=== PATIENT | male | born 1950 | race Caucasian/White ===

== ENCOUNTER → 2016-06-20 | Outpatient (REF) | payer MEDICARE ==
[~2016-06-20] MED LIST: /WARF25TA PO; LIPITOR PO; LISIPOW PO; MOTRIN PO; OXYC1CON PO; PERCOCET PO; TYLE325T5 PO; VICODIN PO
[2016-06-20 12:59] LABS: ALBUMIN 3.8 GM/DL (3.2-5.2); ALBUMIN/GLOBULIN RATIO 1.19 (1.00-1.93); ALKALINE PHOSPHATASE 125 U/L (45-117); ALT/SGPT 25 U/L (12-78); ANION GAP 10 MEQ/L (8-16); AST/SGOT 13 U/L (15-37); BILIRUBIN,TOTAL 0.4 MG/DL (0.2-1.0); BLOOD UREA NITROGEN 15 MG/DL (7-18); CALCIUM LEVEL 9.1 MG/DL (8.8-10.2); CARBON DIOXIDE LEVEL 29 MEQ/L (21-32); CHLORIDE LEVEL 100 MEQ/L (98-107); CHOLESTEROL LEVEL 141 MG/DL (<200); CREATININE FOR GFR 1.04 MG/DL (0.70-1.30); GLOMERULAR FILTRATION RATE > 60.0 (>49); GLUCOSE, FASTING 129 MG/DL (80-110); POTASSIUM SERUM 4.7 MEQ/L (3.5-5.1); SODIUM LEVEL 139 MEQ/L (136-145); TRIGLYCERIDES LEVEL 104 MG/DL (<150)
== END ==
LOC: M SFHCADAM 09:29
PROVIDERS: ATTEND Physician Assistant Medical
DX: E78.4 Other hyperlipidemia (principal); R73.01 Impaired fasting glucose; E55.9 Vitamin D deficiency, unspecified

== ENCOUNTER → 2018-01-27 | Outpatient (REF) | payer MEDICARE ==
[2018-01-27 13:52] LABS: BASO # 0.1 10^3/uL (0.0-0.2); BASO % 0.5 % (0.0-1.0); EOS # 0.2 10^3/uL (0.0-0.50); EOS % 1.8 % (0.0-3.0); HEMATOCRIT 50.1 % (42.0-52.0); HEMOGLOBIN 15.9 g/dl (13.5-17.5); IMMATURE GRANULOCYTE % 0.5 % (0-3.0); LYMPH # 4.5 10^3/uL (1.5-4.5); LYMPH % 34.2 % (24.0-44.0); MEAN CORPUSCULAR HEMOGLOBIN 29.8 pg (27.0-33.0); MEAN CORPUSCULAR HGB CONC 31.7 g/dl (32.0-36.5); MONO # 0.9 10^3/uL (0.0-0.8); MONO % 7.1 % (0.0-5.0); NEUTROPHILS # 7.4 10^3/uL (1.8-7.7); NEUTROPHILS % 55.9 % (36.0-66.0); PLATELET COUNT, AUTOMATED 410 10^3/uL (150-450); RED BLOOD COUNT 5.33 10^6/uL (4.30-6.10); RED CELL DISTRIBUTION WIDTH 14.6 % (11.5-14.5); WHITE BLOOD COUNT 13.2 10^3/uL (4.0-10.0)
[2018-01-27 14:10] LABS: ALBUMIN 3.5 GM/DL (3.2-5.2); ALKALINE PHOSPHATASE 106 U/L (45-117); ALT/SGPT 38 U/L (12-78); ANION GAP 10 MEQ/L (8-16); AST/SGOT 17 U/L (7-37); BILIRUBIN,TOTAL 0.4 MG/DL (0.2-1.0); BLOOD UREA NITROGEN 17 MG/DL (7-18); CALCIUM LEVEL 9.1 MG/DL (8.8-10.2); CARBON DIOXIDE LEVEL 27 MEQ/L (21-32); CHLORIDE LEVEL 100 MEQ/L (98-107); CHOLESTEROL LEVEL 130 MG/DL (<200); CREATININE FOR GFR 1.05 MG/DL (0.70-1.30); FREE T4 0.97 NG/DL (0.76-1.46); GLOMERULAR FILTRATION RATE > 60.0 (>49); GLUCOSE, FASTING 138 MG/DL (70-100); HDL CHOLESTEROL 40 MG/DL (>40); LDL CHOLESTEROL 70 MG/DL (<100); NON-HDL-C 90 MG/DL; SODIUM LEVEL 137 MEQ/L (136-145); TOTAL 25(OH) VITAMIN D 38.6 NG/ML (30.0-100.0); TRIGLYCERIDES LEVEL 100 MG/DL (<150)
[2018-01-27 15:49] LABS: MAU/CREAT RATIO 220.3 MCG/MG (0.0-30.0)
[2018-01-27 20:53] LABS: ESTIMATED AVERAGE GLUCOSE 151 MG/DL (60-110); HEMOGLOBIN A1c 6.9 %
== END ==
LOC: M SFHCADAM 08:16
DX: I10 Essential (primary) hypertension (principal); E78.49 Other hyperlipidemia; E66.01 Morbid (severe) obesity due to excess calories; R73.01 Impaired fasting glucose; E55.9 Vitamin D deficiency, unspecified
CPT/HCPCS: 84443

== ENCOUNTER → 2018-06-18 | Outpatient (CLI) | payer MEDICARE ==
--- NOTE | 2018-06-18 10:21 | REP ---
Chest two views HISTORY: Acute bronchitis Comparison: 02/19/2012 The lungs are clear. The heart is normal in size. The pulmonary vasculature is normal in appearance. The bony structure is intact. IMPRESSION: No acute disease. Electronically Signed by Harsh Schumacher MD 06/18/2018 10:12 A
== END ==
LOC: M ADAMS 08:21
PROVIDERS: ATTEND Physician Assistant Medical
DX: Z87.09 Personal history of other diseases of the respiratory system (principal)

== ENCOUNTER → 2018-06-18 | Outpatient (REF) | payer MEDICARE ==
[2018-06-18 12:40] LABS: BASO % 0.4 % (0.0-1.0); EOS # 0.6 10^3/uL (0.0-0.50); EOS % 6.1 % (0.0-3.0); HEMATOCRIT 48.9 % (42.0-52.0); HEMOGLOBIN 15.6 g/dl (13.5-17.5); LYMPH # 2.7 10^3/uL (1.5-4.5); MEAN CORPUSCULAR HEMOGLOBIN 29.2 pg (27.0-33.0); MEAN CORPUSCULAR HGB CONC 31.9 g/dl (32.0-36.5); MEAN CORPUSCULAR VOLUME 91.6 fl (80.0-96.0); MONO # 1.1 10^3/uL (0.0-0.8); MONO % 11.4 % (0.0-5.0); NEUTROPHILS # 5.5 10^3/uL (1.8-7.7); NEUTROPHILS % 54.7 % (36.0-66.0); PLATELET COUNT, AUTOMATED 408 10^3/uL (150-450); RED BLOOD COUNT 5.34 10^6/uL (4.30-6.10)
== END ==
LOC: M LABDRWAD 12:15 → M LAB REF 12:15
PROVIDERS: ATTEND Physician Assistant Medical
DX: J20.9 Acute bronchitis, unspecified (principal)

== ENCOUNTER → 2018-07-16 | Outpatient (REF) | payer MEDICARE ==
[~2018-07-16] MED LIST changes: -/WARF25TA PO; +COUM1TAB18 PO; +OXYC1TAB23 PO; -PERCOCET PO
[2018-07-16 13:16] LABS: ALBUMIN 3.7 GM/DL (3.2-5.2); ALT/SGPT 34 U/L (12-78); BILIRUBIN,TOTAL 0.4 MG/DL (0.2-1.0); BLOOD UREA NITROGEN 19 MG/DL (7-18); CALCIUM LEVEL 9.7 MG/DL (8.8-10.2); CARBON DIOXIDE LEVEL 28 MEQ/L (21-32); CHLORIDE LEVEL 101 MEQ/L (98-107); CREATININE FOR GFR 0.97 MG/DL (0.70-1.30); GLOMERULAR FILTRATION RATE > 60.0 (>49); GLUCOSE, FASTING 122 MG/DL (70-100); POTASSIUM SERUM 5.4 MEQ/L (3.5-5.1); SODIUM LEVEL 136 MEQ/L (136-145); TOTAL PROTEIN 7.1 GM/DL (6.4-8.2)
[2018-07-16 14:02] LABS: MALB URINE SIEMENS 30.4 MG/L; MAU/CREAT RATIO 10.6 MCG/MG (0.0-30.0)
[2018-07-16 14:23] LABS: HEMOGLOBIN A1c 6.4 %
== END ==
LOC: M SFHCADAM 08:07
PROVIDERS: ATTEND Physician Assistant Medical
DX: E11.29 Type 2 diabetes mellitus with other diabetic kidney complication (principal)

== ENCOUNTER → 2019-10-08 | Outpatient (REF) | payer MEDICARE ==
[2019-10-08 12:52] LABS: BASO # 0.1 10^3/uL (0.0-0.2); BASO % 0.6 % (0.0-1.0); EOS # 0.6 10^3/uL (0.0-0.5); EOS % 4.6 % (0.0-3.0); HEMATOCRIT 48.6 % (42.0-52.0); HEMOGLOBIN 15.5 g/dl (13.5-17.5); LYMPH # 4.4 10^3/uL (1.5-5.0); LYMPH % 32.4 % (24.0-44.0); MEAN CORPUSCULAR HEMOGLOBIN 30.2 pg (27.0-33.0); MEAN CORPUSCULAR HGB CONC 31.9 g/dl (32.0-36.5); MEAN CORPUSCULAR VOLUME 94.6 fl (80.0-96.0); MONO % 7.1 % (0.0-5.0); NEUTROPHILS # 7.4 10^3/uL (1.5-8.5); NEUTROPHILS % 54.8 % (36.0-66.0); PLATELET COUNT, AUTOMATED 433 10^3/uL (150-450); RED BLOOD COUNT 5.14 10^6/uL (4.30-6.10); WHITE BLOOD COUNT 13.6 10^3/uL (4.0-10.0)
[2019-10-08 13:07] LABS: ALBUMIN 3.6 GM/DL (3.2-5.2); ALT/SGPT 44 U/L (12-78); BILIRUBIN,TOTAL 0.3 MG/DL (0.2-1.0); BLOOD UREA NITROGEN 16 MG/DL (7-18); CALCIUM LEVEL 9.4 MG/DL (8.8-10.2); CARBON DIOXIDE LEVEL 26 MEQ/L (21-32); CHLORIDE LEVEL 103 MEQ/L (98-107); CHOLESTEROL LEVEL 145 MG/DL (<200); CHOLESTEROL RISK RATIO 3.717 (<5); CREATININE FOR GFR 0.99 MG/DL (0.70-1.30); GLOMERULAR FILTRATION RATE > 60.0 (>49); GLUCOSE, FASTING 126 MG/DL (70-100); HDL CHOLESTEROL 39 MG/DL (>40); LDL CHOLESTEROL 82 MG/DL (<100); NON-HDL-C 106 MG/DL; POTASSIUM SERUM 4.8 MEQ/L (3.5-5.1); SODIUM LEVEL 139 MEQ/L (136-145); TOTAL 25(OH) VITAMIN D 40.9 NG/ML (30.0-100.0); TOTAL PROTEIN 7.2 GM/DL (6.4-8.2); TRIGLYCERIDES LEVEL 120 MG/DL (<150)
== END ==
LOC: M SFHCADAM 08:31
PROVIDERS: ATTEND Physician Assistant Medical
DX: E11.29 Type 2 diabetes mellitus with other diabetic kidney complication (principal); I10 Essential (primary) hypertension; E66.01 Morbid (severe) obesity due to excess calories; E55.9 Vitamin D deficiency, unspecified; R80.9 Proteinuria, unspecified

== ENCOUNTER → 2021-02-01 | Outpatient (REF) | payer MEDICARE ==
[2021-02-01 13:22] LABS: ALT/SGPT 31 U/L (12-78); BILIRUBIN,TOTAL 0.4 MG/DL (0.2-1.0); BLOOD UREA NITROGEN 20 MG/DL (7-18); CALCIUM LEVEL 10.5 MG/DL (8.8-10.2); CARBON DIOXIDE LEVEL 28 MEQ/L (21-32); CHLORIDE LEVEL 103 MEQ/L (98-107); CHOLESTEROL LEVEL 155 MG/DL (<200); CHOLESTEROL RISK RATIO 4.189 (<5); CREATININE FOR GFR 1.01 MG/DL (0.70-1.30); GLOMERULAR FILTRATION RATE > 60.0 (>49); GLUCOSE, FASTING 127 MG/DL (70-100); HDL CHOLESTEROL 37 MG/DL (>40); LDL CHOLESTEROL 97 MG/DL (<100); NON-HDL-C 118 MG/DL; POTASSIUM SERUM 5.5 MEQ/L (3.5-5.1); SODIUM LEVEL 136 MEQ/L (136-145); TOTAL PROTEIN 7.3 GM/DL (6.4-8.2); TRIGLYCERIDES LEVEL 103 MG/DL (<150)
[2021-02-01 13:41] LABS: HEMOGLOBIN A1c 5.8 %
== END ==
LOC: M SFHCADAM 08:01
PROVIDERS: ATTEND Physician Assistant Medical
DX: I10 Essential (primary) hypertension (principal); E55.9 Vitamin D deficiency, unspecified; E11.29 Type 2 diabetes mellitus with other diabetic kidney complication

== ENCOUNTER → 2021-02-07 | Outpatient (REF) | payer MEDICARE ==
[2021-02-07 14:19] LABS: BLOOD UREA NITROGEN 19 MG/DL (7-18); CARBON DIOXIDE LEVEL 26 MEQ/L (21-32); CHLORIDE LEVEL 104 MEQ/L (98-107); CREATININE FOR GFR 0.91 MG/DL (0.70-1.30); GLOMERULAR FILTRATION RATE > 60.0 (>49); GLUCOSE, FASTING 152 MG/DL (70-100); POTASSIUM SERUM 4.8 MEQ/L (3.5-5.1); SODIUM LEVEL 136 MEQ/L (136-145)
== END ==
LOC: M SFHCADAM 10:23
PROVIDERS: ATTEND Physician Assistant Medical
DX: E87.5 Hyperkalemia (principal)

== ENCOUNTER → 2021-08-02 | Outpatient (REF) | payer MEDICARE ==
[2021-08-02 13:24] LABS: BASO % 0.4 % (0.0-1.0); EOS # 0.3 10^3/uL (0.0-0.5); EOS % 3.1 % (0.0-3.0); HEMATOCRIT 49.8 % (42.0-52.0); HEMOGLOBIN 16.2 g/dl (13.5-17.5); LYMPH # 3.2 10^3/uL (1.5-5.0); LYMPH % 32.3 % (24.0-44.0); MEAN CORPUSCULAR HEMOGLOBIN 30.1 pg (27.0-33.0); MEAN CORPUSCULAR HGB CONC 32.5 g/dl (32.0-36.5); MEAN CORPUSCULAR VOLUME 92.4 fl (80.0-96.0); MONO # 0.7 10^3/uL (0.0-0.8); MONO % 7.3 % (2.0-8.0); NEUTROPHILS # 5.6 10^3/uL (1.5-8.5); NEUTROPHILS % 56.5 % (36.0-66.0); PLATELET COUNT, AUTOMATED 368 10^3/uL (150-450); RED BLOOD COUNT 5.39 10^6/uL (4.30-6.10); WHITE BLOOD COUNT 9.9 10^3/uL (4.0-10.0)
[2021-08-02 13:31] LABS: BLOOD UREA NITROGEN 18 MG/DL (7-18); CALCIUM LEVEL 10.3 MG/DL (8.8-10.2); CARBON DIOXIDE LEVEL 28 MEQ/L (21-32); CHLORIDE LEVEL 104 MEQ/L (98-107); CREATININE FOR GFR 0.74 MG/DL (0.70-1.30); GLOMERULAR FILTRATION RATE > 60.0 (>42); GLUCOSE, FASTING 114 MG/DL (70-100); POTASSIUM SERUM 4.9 MEQ/L (3.5-5.1); SODIUM LEVEL 138 MEQ/L (136-145)
[2021-08-02 13:32] LABS: ALBUMIN 3.9 GM/DL (3.2-5.2); ALT/SGPT 22 U/L (12-78); BILIRUBIN,TOTAL 0.3 MG/DL (0.2-1.0); CHOLESTEROL LEVEL 253 MG/DL (<200); CHOLESTEROL RISK RATIO 5.883 (<5); HDL CHOLESTEROL 43 MG/DL (>40); LDL CHOLESTEROL 193 MG/DL (<100); NON-HDL-C 210 MG/DL; TOTAL PROTEIN 7.2 GM/DL (6.4-8.2); TRIGLYCERIDES LEVEL 84 MG/DL (<150)
[2021-08-02 14:09] LABS: MALB URINE SIEMENS 12.6 MG/L; MAU/CREAT RATIO 9.5 MCG/MG (0.0-30.0)
[2021-08-02 14:46] LABS: HEMOGLOBIN A1c 5.7 %
== END ==
LOC: M SFHCADAM 08:08
PROVIDERS: ATTEND Physician Assistant Medical
DX: E11.29 Type 2 diabetes mellitus with other diabetic kidney complication (principal); I10 Essential (primary) hypertension; E55.9 Vitamin D deficiency, unspecified; R80.9 Proteinuria, unspecified

== ENCOUNTER → 2022-10-31 | Outpatient (REF) | payer MEDICARE ==
[~2022-10-31] MED LIST changes: +ATOR40TA75 PO; +LISI20TA33 PO; +METF500T13
[2022-10-31 13:44] LABS: HEMOGLOBIN A1c 5.6 % (4.0-6.0)
[2022-10-31 14:08] LABS: CHOLESTEROL RISK RATIO 5.32 (<5); HDL CHOLESTEROL 44.9 MG/DL (>40); LDL CHOLESTEROL 172.7 MG/DL (<100); NON-HDL-C 194.1 MG/DL
== END ==
LOC: M SFHCADAM 11:25
PROVIDERS: ATTEND Physician Assistant Medical
DX: I10 Essential (primary) hypertension (principal); E55.9 Vitamin D deficiency, unspecified; E66.01 Morbid (severe) obesity due to excess calories; E11.29 Type 2 diabetes mellitus with other diabetic kidney complication

== ENCOUNTER → 2023-10-22 | Outpatient (REF) | payer MEDICARE ==
[2023-10-22 18:26] LABS: BASO % 0.4 % (0.0-1.0); EOS # 0.1 10^3/uL (0.0-0.5); EOS % 1.4 % (0.0-3.0); HEMATOCRIT 50.5 % (42.0-52.0); HEMOGLOBIN 16.2 g/dl (13.5-17.5); LYMPH # 3.3 10^3/uL (1.5-5.0); MEAN CORPUSCULAR HGB CONC 32.1 g/dl (32.0-36.5); MEAN CORPUSCULAR VOLUME 93.5 fl (80.0-96.0); MONO # 0.8 10^3/uL (0.0-0.8); MONO % 8.4 % (2.0-8.0); NEUTROPHILS # 5.4 10^3/uL (1.5-8.5); NEUTROPHILS % 55.5 % (36.0-66.0); PLATELET COUNT, AUTOMATED 440 10^3/uL (150-450); WHITE BLOOD COUNT 9.7 10^3/uL (4.0-10.0)
[2023-10-22 18:30] LABS: ALBUMIN 4.1 G/DL (3.2-5.2); ALKALINE PHOSPHATASE 77 U/L (46-116); ALT/SGPT 19 U/L (7.0-40); AST/SGOT < 8 U/L (<34); BILIRUBIN,TOTAL 0.5 MG/DL (0.3-1.2); BLOOD UREA NITROGEN 20 MG/DL (9-23); CALCIUM LEVEL 10.4 MG/DL (8.3-10.6); CARBON DIOXIDE LEVEL 25 MMOL/L (20-31); CHLORIDE LEVEL 104 MMOL/L (98-107); CHOLESTEROL LEVEL 183 MG/DL (<200); CREATININE FOR GFR 0.77 MG/DL (0.70-1.30); GLOMERULAR FILTRATION RATE > 60.0 (>42); GLUCOSE, FASTING 132 MG/DL (74-106); HDL CHOLESTEROL 43.5 MG/DL (>40); LDL CHOLESTEROL 120.7 MG/DL (<100); NON-HDL-C 139.5 MG/DL; POTASSIUM SERUM 5.1 MMOL/L (3.5-5.1); SODIUM LEVEL 138 MMOL/L (136-145); TOTAL PROTEIN 7.2 G/DL (5.7-8.2); TRIGLYCERIDES LEVEL 94 MG/DL (<150)
[2023-10-22 18:31] LABS: THYROID STIMULATING HORMONE 2.351 uIU/ML (0.55-4.78)
[2023-10-22 18:32] LABS: TOTAL 25(OH) VITAMIN D 78.8 NG/ML (20.0-100.0)
[2023-10-22 18:51] LABS: HEMOGLOBIN A1c 5.5 % (4.0-6.0)
[2023-10-22 18:58] LABS: MAU/CREAT RATIO 52.4 MCG/MG (0.0-30.0)
== END ==
LOC: M SFHCADAM 11:34
PROVIDERS: ATTEND Physician Assistant Medical
DX: I10 Essential (primary) hypertension (principal); E66.01 Morbid (severe) obesity due to excess calories; E11.29 Type 2 diabetes mellitus with other diabetic kidney complication; E55.9 Vitamin D deficiency, unspecified

== ENCOUNTER → 2023-10-25 | Outpatient (CLI) | payer MEDICARE | LOC: M PLAIMG 12:35 | PROVIDERS: ATTEND Internal Medicine Cardiovascular Disease | DX: R01.1 Cardiac murmur, unspecified (principal); I27.20 Pulmonary hypertension, unspecified; I35.0 Nonrheumatic aortic (valve) stenosis ==

== ENCOUNTER → 2024-12-08 | Outpatient (REF) | payer MEDICARE ==
[2024-12-08 14:24] LABS: BASO # 0.1 10^3/uL (0.0-0.2); BASO % 0.6 % (0.0-1.0); EOS # 0.3 10^3/uL (0.0-0.5); EOS % 2.6 % (0.0-3.0); LYMPH # 4.0 10^3/uL (1.5-5.0); LYMPH % 41.6 % (24.0-44.0); MONO # 0.8 10^3/uL (0.0-0.8); MONO % 8.4 % (2.0-8.0); NEUTROPHILS # 4.4 10^3/uL (1.5-8.5); NEUTROPHILS % 46.4 % (36.0-66.0); PLATELET COUNT, AUTOMATED 392 10^3/uL (150-450)
[2024-12-08 14:25] LABS: ALT/SGPT 22 U/L (7.0-40); AST/SGOT 16 U/L (<34); CALCIUM LEVEL 9.7 MG/DL (8.3-10.6); CARBON DIOXIDE LEVEL 28 MMOL/L (20-31); CHLORIDE LEVEL 102 MMOL/L (98-107); CHOLESTEROL LEVEL 237 MG/DL (<200); CHOLESTEROL RISK RATIO 5.33 (<5); CREATININE FOR GFR 0.79 MG/DL (0.70-1.30); GLOMERULAR FILTRATION RATE > 90.0 (>42); LDL CHOLESTEROL 172.8 MG/DL (<100); NON-HDL-C 192.6 MG/DL; POTASSIUM SERUM 4.0 MMOL/L (3.5-5.1); SODIUM LEVEL 140 MMOL/L (136-145); TRIGLYCERIDES LEVEL 99 MG/DL (<150)
[2024-12-08 14:27] LABS: FREE T4 1.20 NG/DL (0.89-1.76)
[2024-12-08 14:28] LABS: TOTAL 25(OH) VITAMIN D 67.5 NG/ML (20.0-100.0)
[2024-12-08 14:32] LABS: ESTIMATED AVERAGE GLUCOSE 123.0 MG/DL (60-110)
[2024-12-08 14:53] LABS: CREATININE, URINE 76.7 MG/DL; MALB URINE SIEMENS < 3.0 MG/L
== END ==
LOC: M SFHCADAM 08:23
PROVIDERS: ATTEND Physician Assistant Medical
DX: I10 Essential (primary) hypertension (principal); E66.01 Morbid (severe) obesity due to excess calories; E11.29 Type 2 diabetes mellitus with other diabetic kidney complication; E55.9 Vitamin D deficiency, unspecified